=== PATIENT | male | born 1960 | race Hispanic/Latino ===

== ENCOUNTER → 2021-08-02 | Outpatient (CLI) | payer MEDICARE ==
[~2021-08-02] MED LIST: ACET1TAB25 PO; ALLO300T2 PO; ATOR20TA65 PO; GABA-531 PO; IBUP-2077 PO; KETO10TA2 PO; NAPR-1192 PO; OMEP40CA21 PO; POTASSIUM PO; TAMS0.4C32 PO
== END | disposition home or self-care (01) ==
LOC: RAH 09:38
PROVIDERS: ATTEND Urology
DX: N20.0 Calculus of kidney (principal)
CPT/HCPCS: 74018; 76100

== ENCOUNTER → 2021-09-24 | Outpatient (CLI) | payer MEDICARE ==
[~2021-09-24] MED LIST changes: +ACET-2079 PO; -ACET1TAB25 PO
== END | disposition home or self-care (01) ==
LOC: RAH 08:18
PROVIDERS: ATTEND Urology
DX: N20.0 Calculus of kidney (principal)
CPT/HCPCS: 74018; 76100